=== PATIENT | female | born 2005 | race African-American/Black ===

== ENCOUNTER 2025-01-15 17:12 | Emergency (ER) | payer OTHER ==
[~2025-01-15] VITALS: Ht 170.2 cm; Wt 63.5 kg
--- NOTE | 2025-01-15 17:39 | ERN ---
General Chief Complaint: Eye Problems Stated Complaint: LT EYE PROBLEM Time Seen by MD: 17:14 Time Seen by Midlevel: 17:14 Source: patient History of Present Illness Initial Comments Patient is a 19-year-old female with no significant past medical history presenting to the emergency department for evaluation following left eye droopiness. The patient states she woke up this morning and noticed her left eyelid was droopy. She goes your symptoms reported to an ophthalmology clinic where she had her eyes dilated and was advised that this could potentially be neurological so they advised to report to the ER for further evaluation. The patient denies any persistent headache, vision changes, focal weakness, nausea, vomiting, or any other symptoms at this time. Allergies: Coded Allergies: grass pollen (Unverified Allergy, Unknown, 01/15/25) Past Medical History Past Medical History: Asthma Past Surgical History: Tonsillectomy Female( History) LMP: Dec 30, 2024 ROS Dictation CONSTITUTIONAL: Negative except for HPI HEAD/FACE: Negative except for HPI EENT: Negative except for HPI RESPIRATORY: Negative except for HPI GASTROINTESTINAL/ABDOMINAL: Negative except for HPI GENITOURINARY: Negative except for HPI MUSCULOSKELETAL: Negative except for HPI INTEGUMENTARY: Negative except for HPI NEUROLOGICAL/PSYCH: Negative except for HPI HEMATOLOGIC/LYMPHATIC: Negative except for HPI All Systems Negative, Except as noted above. 13 point review of systems assessed and all negative except for above. Physical Exam Physical Exam Dictation Vital Signs reviewed General Appearance: Alert, oriented x 3, no acute distress, well developed, nourished. Head and Face: non-traumatic. Eyes: PERRL, pink conjunctivas, eyelid no trauma, anterior chamber with arcus senilis. Ears: Pinnas intact and no signs of trauma or erythema ear canals clear and no discharge TM no erythema Nose: No discharge, no bleeding. Oropharynx: Mouth normal, tongue pink, pharynx clear,no erythema, tonsils no exudates, no abscesses noted, mucous membrane moist Neck: Supple, non-tender, no thyromegaly, no masses, no JVD, no bruits Breast:Deferred Chest:No tenderness, no crepitus, no paradoxical movement, no retractions Lungs:Clear, well-ventilated, symmetric, no rales, no wheezing, no rhonchi, no stridor, good breath sounds bilaterally Heart: Regular rate, regular rhythm, no murmur, no gallops Vascular: no peripheral edema, Abdomen: Soft, positive bowel sounds, nondistended, no guarding, nontender, no rebound, no masses no hepatomegaly, no splenomegaly, no Hart's sign, no hernias. Rectal: Deferred Genital: Deferred Neurological: Normal speech, motor function intact, sensory function intact Musculoskeletal: Neck nontender, full range of motion, back nontender, full range of motion, Extremities: nontender, full range of motion Skin: Color pink, dry, no turgor, no rash, no lacerations, no abrasions, no contusions. Lymphatic: Deferred Results Laboratory and Microbiology Lab and Micro Result Laboratory Tests Test 01/15/25 18:02 White Blood Count 7.5 K/uL (4.8-10.8) Red Blood Count 4.75 MIL/uL (4.00-5.50) Hemoglobin 13.9 g/dL (12.0-16.0) Hematocrit 44.0 % (36-48) Mean Corpuscular Volume 92.6 fL (80-100) Mean Corpuscular Hemoglobin 29.3 pg (27.0-33.0) Mean Corpuscular Hemoglobin Concent 31.6 g/dL (32.0-36.0) L Red Cell Distribution Width 12.2 % (11.0-15.5) Platelet Count 409 K/uL (130-400) H Mean Platelet Volume 9.3 fL (7.5-10.5) Immature Granulocyte % (Auto) 0.3 % (0-1) Neutrophils (%) (Auto) 45.1 % (40.0-77.0) Lymphocytes (%) (Auto) 48.4 % (21.0-51.0) Monocytes (%) (Auto) 4.2 % (3.0-13.0) Eosinophils (%) (Auto) 1.5 % (0.0-8.0) Basophils (%) (Auto) 0.5 % (0.0-5.0) Neutrophils # (Auto) 3.4 K/uL (1.8-7.7) Lymphocytes # (Auto) 3.6 K/uL (1.0-4.8) Monocytes # (Auto) 0.3 K/uL (0.1-1.0) Eosinophils # (Auto) 0.11 K/uL (0.00-0.70) Basophils # (Auto) 0.04 K/uL (0.00-0.20) Absolute Immature Granulocyte (auto 0.02 K/uL (0-1) Nucleated Red Blood Cells 0.0 % (0.0-0.19) Sodium Level 138 mmol/L (136-145) Potassium Level 3.3 mmol/L (3.5-5.1) L Chloride Level 99 mmol/L (101-111) L Carbon Dioxide Level 32 mmol/L (21-32) Blood Urea Nitrogen 7 mg/dL (7-18) Creatinine 0.8 mg/dL (0.5-1.0) Glomerular Filtration Rate Calc 107 mL/min (>90) Random Glucose 149 mg/dL (70-105) H Total Calcium 9.1 mg/dL (8.5-10.1) Serum Test, Qualitative NEGATIVE (NEGATIVE) Labs Reviewed?: Yes MDM MDM: Patient is a 19-year-old female with no significant past medical history presenting to the emergency department for evaluation following left eye droopiness. The patient states she woke up this morning and noticed her left eyelid was droopy. She goes your symptoms reported to an ophthalmology clinic where she had her eyes dilated and was advised that this could potentially be neurological so they advised to report to the ER for further evaluation. The patient denies any persistent headache, vision changes, focal weakness, nausea, vomiting, or any other symptoms at this time. On physical examination the patient is in no acute distress. Initial vital signs are stable. Her neuro logical examination is unremarkable. There was no facial droop or eyelid droop noted. Cranial nerves are intact. She has a GCS of 15. We obtained basic labs and a CT scan of the head to rule out any acute intracranial process. CBC and chemistries are unremarkable. CT scan of the head does not show any acute intracranial abnormality. I advised patient to follow up with your primary care doctor for further evaluation and possibly an MRI for outpatient. Differential diagnosis: Intracranial bleed, intracranial mass, dehydration, electrolyte abnormality, Wallace's palsy There are no social concerns with this patient. Prescription drug management Prescriptions will include: None Medical management and examination interpretation discussions were had by me with other qualified healthcare professionals as indicated for the patient's care. ED Course Orders Procedure Category Date Status Time Cbc With Differential LAB 01/15/25 Complete 17:20 Basic Metabolic Panel LAB 01/15/25 Complete 17:20 Testing, LAB 01/15/25 Complete Serum Hcg 17:20 Ct Head/Brain W/O CT 01/15/25 Resulted Contrast 17:20 Vital Signs Date Time Temp Pulse Resp B/P (MAP) Pulse Ox O2 Delivery O2 Flow Rate FiO2 01/15/25 19:30 98.8 87 18 132/81 98 Room Air* 0 21 01/15/25 17:14 99.3 106 20 150/95 99 Room Air DX & DISP Disposition: Discharge Departure Impression: Primary Impression: Droopy eyelid Condition: Stable Additional Instructions: Your blood work today is unremarkable. Your CT scan of the head does not show any evidence of an intracranial mass or any other intracranial abnormality. Please follow up with your primary care doctor in 2-3 days for repeat evaluation. Return to the ER for any new or worsening symptoms Referrals: SELF,REFERRAL (PCP) Time of Disposition: 19:23 I have reviewed the case, and I agree with, Diagnosis and Plan I performed the substantive portion of the visit. I have reviewed and personally made and approve the management plan that is documented in the note by myself or the MERRY. I acknowledge for responsibility for the patient's management plan. CARLO KABA Jan 15, 2025 17:39
[2025-01-15 18:21] LABS: BASOPHILS # (AUTO) 0.04 K/uL (0.00-0.20); BASOPHILS % (AUTO) 0.5 % (0.0-5.0); EOSINOPHILS # (AUTO) 0.11 K/uL (0.00-0.70); EOSINOPHILS % (AUTO) 1.5 % (0.0-8.0); IMMATURE GRANULOCYTE ABSOLUTE 0.02 K/uL (0-1); LYMPHOCYTES # (AUTO) 3.6 K/uL (1.0-4.8); LYMPHOCYTES % (AUTO) 48.4 % (21.0-51.0); MEAN CORPUSCULAR HEMOGLOBIN 29.3 pg (27.0-33.0); MEAN CORPUSCULAR HGB CONC 31.6 g/dL (32.0-36.0); MEAN CORPUSCULAR VOLUME 92.6 fL (80-100); MONOCYTES # (AUTO) 0.3 K/uL (0.1-1.0); MONOCYTES % (AUTO) 4.2 % (3.0-13.0); NEUTROPHILS # (AUTO) 3.4 K/uL (1.8-7.7); NEUTROPHILS % (AUTO) 45.1 % (40.0-77.0); PLATELET COUNT (AUTO) 409 K/uL (130-400); RED BLOOD CELL COUNT(AUTO) 4.75 MIL/uL (4.00-5.50); RED CELL DISTRIBUTION WIDTH 12.2 % (11.0-15.5); WHITE BLOOD COUNT (AUTO) 7.5 K/uL (4.8-10.8)
[2025-01-15 18:35] LABS: CREATININE 0.8 mg/dL (0.5-1.0); POTASSIUM 3.3 mmol/L (3.5-5.1)
--- NOTE | 2025-01-15 19:20 | HMCIMG ---
CT HEAD WITHOUT CONTRAST INDICATION: Left eyelid drooping TECHNIQUE: Noncontrast axial helical CT images from the vertex through the skull base using 5 mm slice thickness without contrast material. CT was performed with one or more of the following dose reduction techniques: Automated exposure control, adjustment of the mA and/or kV according to patient size, or use of iterative reconstruction technique. COMPARISON: None FINDINGS: The cerebral and cerebellar hemispheres are age-appropriate in appearance. No evidence for abnormal extra-axial fluid collections or masses. The ventricles and sulci are normal in size and configuration. No evidence for intracranial parenchymal, epidural, or subdural hemorrhage, mass effect or midline shift. The haskins-white matter differentiation is well preserved. No secondary evidence to suggest acute ischemia. The brainstem and cerebellum appear normal. Orbits were not included on this study. The visible paranasal sinuses and mastoid air cells are clear. The calvarium appears normal. IMPRESSION: Orbits were not included on this study. No acute intracranial process identified.
[2025-01-15 19:30] VITALS: BP 132/81; PULSE 87; RESP 18; TEMP 98.7; O2SAT 98
== END 2025-01-15 19:36 | disposition home or self-care (01) ==
LOC: EDH 17:12
DX: H02.402 Unspecified ptosis of left eyelid (principal); J45.909 Unspecified asthma, uncomplicated; Z90.89 Acquired absence of other organs
CPT/HCPCS: 36415; 70450; 80048; 84703; 85025; 99284

== ENCOUNTER 2025-07-08 21:11 | Emergency (ER) | payer OTHER ==
[~2025-07-08] VITALS: Ht 170.2 cm; Wt 65.3 kg
[2025-07-08 21:41] LABS: IMMATURE GRANULOCYTE ABSOLUTE 0.02 K/uL (0-1); NUCLEATED RED BLOOD CELLS 0.0 % (0.0-0.19); PLATELET COUNT (AUTO) 316 K/uL (130-400); RED BLOOD CELL COUNT(AUTO) 4.26 MIL/uL (4.00-5.50); RED CELL DISTRIBUTION WIDTH 12.9 % (11.0-15.5); WHITE BLOOD COUNT (AUTO) 7.9 K/uL (4.8-10.8)
--- NOTE | 2025-07-08 22:02 | ERN ---
ED Note History of Present Illness Stated Complaint: C/O SI Chief Complaint: Suicidal Ideation Time Seen by MD: 21:14 Time Seen by Midlevel: 21:14 Dictation: The patient is a 20-year-old female with a history of tonsillectomy, scoliosis, asthma who presents to the emergency department with complaints of suicidal ideations onset Tuesday. patient reports that she has had suicidal ideations in the past but never has attempted suicide. Patient reports she has a plan to jump off a violeta or ran her car into a building. Denies any recent attempt. Denies any homicidal ideation denies any hallucinations. Allergies: Coded Allergies: No Known Allergies (Unverified Allergy, Unknown, 07/08/25) grass pollen (Unverified Allergy, Unknown, 01/15/25) Past Medical History Past Medical History: Asthma, Other Additional Past Medical Hx: HX OF SCOLIOSIS Surgical History: Tonsillectomy LMP: Jun 23, 2025 RN Note Reviewed/Agreed w/PFSH: Yes Review of System Dictation Constitutional: Negative for fever,chills, and weight loss Eyes: Negative for injury, pain,redness, and discharge ENT: Negative for injury,pain or swelling Cardiovascular: Negative for chest pain, palpitations, and edema Respiratory: Negative for shortness of breath, cough, and wheezing, Abdomen/GI: Negative for abdominal pain, nausea, vomiting, diarrhea, and constipation Back: Negative for injury and pain : Negative for injury, bleeding and discharge MS/Extremity: Negative for injury and deformity Skin: Negative for rash, and discoloration Neuro: Negative for headache, weakness, numbness, tingling, and seizure Psych: Negative for homicidal ideation, and hallucinations positive for suicidal ideation Initial Vital Sign VS Vital Signs Date Time Temp Pulse Resp B/P (MAP) Pulse Ox O2 Delivery O2 Flow Rate FiO2 07/08/25 21:12 99.9 94 20 136/86 99 Room Air 07/08/25 22:13 0 21 Physical Exam Dictation Vital Signs reviewed General Appearance: Alert, oriented x 3, no acute distress, well developed, nourished. Head and Face: non-traumatic. Eyes: PERRL, pink conjunctivas, eyelid no trauma, anterior chamber with arcus senilis. Ears: Pinnas intact and no signs of trauma or erythema ear canals clear and no discharge TM no erythema Nose: No discharge, no bleeding. Oropharynx: Mouth normal, tongue pink. pharynx clear,no erythema, tonsils no exudates, no abscesses noted, mucous membrane moist Neck: Supple, non-tender, no thyromegaly, no masses, no JVD, no bruits Breast:Deferred Chest:No tenderness, no crepitus, no paradoxical movement, no retractions Lungs:Clear, well-ventilated, symmetric, no rales, no wheezing, no rhonchi, no stridor, good breath sounds bilaterally Heart: Regular rate, regular rhythm, no murmur, no gallops Vascular: no peripheral edema, Abdomen: Soft, positive bowel sounds, nondistended, no guarding, nontender, no rebound, no masses no hepatomegaly, no splenomegaly, no Hart's sign, no hernias. Rectal: Deferred Genital: Deferred Neurological: Normal speech, motor function intact, sensory function intact Musculoskeletal: Neck nontender, full range of motion, back nontender, full range of motion, Extremities: nontender, full range of motion Skin: Color pink, dry, no turgor, no rash, no lacerations, no abrasions, no contusions. Lymphatic: Deferred Results (Laboratory/Radiology) Laboratory/Radiology Laboratory Tests Test 07/08/25 21:30 07/08/25 22:30 White Blood Count 7.9 K/uL (4.8-10.8) Red Blood Count 4.26 MIL/uL (4.00-5.50) Hemoglobin 13.0 g/dL (12.0-16.0) Hematocrit 39.1 % (36-48) Mean Corpuscular Volume 91.8 fL (79-99) Mean Corpuscular Hemoglobin 30.5 pg (27.0-33.0) Mean Corpuscular Hemoglobin Concent 33.2 g/dL (32.0-36.0) Red Cell Distribution Width 12.9 % (11.0-15.5) Platelet Count 316 K/uL (130-400) Mean Platelet Volume 9.1 fL (7.5-10.5) Immature Granulocyte % (Auto) 0.3 % (0-1) Neutrophils (%) (Auto) 68.9 % (40.0-77.0) Lymphocytes (%) (Auto) 25.7 % (21.0-51.0) Monocytes (%) (Auto) 4.6 % (3.0-13.0) Eosinophils (%) (Auto) 0.1 % (0.0-8.0) Basophils (%) (Auto) 0.4 % (0.0-5.0) Neutrophils # (Auto) 5.4 K/uL (1.8-7.7) Lymphocytes # (Auto) 2.0 K/uL (1.0-4.8) Monocytes # (Auto) 0.4 K/uL (0.1-1.0) Eosinophils # (Auto) 0.01 K/uL (0.00-0.70) Basophils # (Auto) 0.03 K/uL (0.00-0.20) Absolute Immature Granulocyte (auto 0.02 K/uL (0-1) Nucleated Red Blood Cells 0.0 % (0.0-0.19) Sodium Level 140 mmol/L (136-145) Potassium Level 3.7 mmol/L (3.5-5.1) Chloride Level 102 mmol/L (101-111) Carbon Dioxide Level 26 mmol/L (21-32) Blood Urea Nitrogen 5 mg/dL (7-18) L Creatinine 0.7 mg/dL (0.5-1.0) Glomerular Filtration Rate Calc 125 mL/min (>90) Random Glucose 95 mg/dL (70-105) Total Calcium 8.8 mg/dL (8.5-10.1) Salicylates Level < 2.8 mg/dL (2.8-20.0) L Acetaminophen Level < 1 mcg/mL (10-30) L Serum Alcohol < 3 mg/dL (0-10) Urine Color COLORLESS (YELLOW) Urine Appearance CLEAR (CLEAR) Urine pH 7.0 (5.0-8.0) Urine Specific [place] 1.002 (1.001-1.031) Urine Protein NEGATIVE mg/dL (NEGATIVE) Urine Glucose (UA) NEGATIVE mg/dL (NEGATIVE) Urine Ketones NEGATIVE mg/dL (NEGATIVE) Urine Occult Blood NEGATIVE (NEGATIVE) Urine Nitrate NEGATIVE (NEGATIVE) Urine Bilirubin NEGATIVE mg/dL (NEGATIVE) Urine Urobilinogen 0.2 mg/dL (0.2-1.0) Urine Leukocyte Esterase NEGATIVE [place]/uL Urine HCG, Qualitative NEGATIVE (NEGATIVE) Urine Opiates Screen NEGATIVE (NEGATIVE) Urine Barbiturates Screen NEGATIVE (NEGATIVE) Urine Phencyclidine Screen NEGATIVE (NEGATIVE) Urine Amphetamines Screen NEGATIVE (NEGATIVE) Urine Benzodiazepines Screen NEGATIVE (NEGATIVE) Urine Cocaine Screen NEGATIVE (NEGATIVE) Urine Marijuana (THC) Screen NEGATIVE (NEGATIVE) Labs Reviewed?: Yes ED Course ED Course Orders Procedure Category Date Status Time Cbc With Differential LAB 07/08/25 Complete 21: Alcohol, Blood LAB 07/08/25 Complete 21:23 Salicylate LAB 07/08/25 Complete 21:23 Acetaminophen LAB 07/08/25 Complete 21:23 Urinalysis Profile LAB 07/08/25 Complete 21:23 Basic Metabolic Panel LAB 07/08/25 Complete 21:23 ,Urine Test LAB 07/08/25 Complete 21:23 Drug Screen Urine LAB 07/08/25 Complete 21:54 Vital Signs Date Time Temp Pulse Resp B/P (MAP) Pulse Ox O2 Delivery O2 Flow Rate FiO2 07/08/25 22:13 98.2 82 18 120/74 98 Room Air* 0 21 07/08/25 21:12 99.9 94 20 136/86 99 Room Air Medical Decision Making MDM The patient is a 20-year-old female with a history of tonsillectomy, scoliosis, asthma who presents to the emergency department with complaints of suicidal ideations onset Tuesday. patient reports that she has had suicidal ideations in the past but never has attempted suicide. Patient reports she has a plan to jump off a violeta or ran her car into a building. Denies any recent attempt. Denies any homicidal ideation denies any hallucinations. CBC showed no leukocytosis, no anemia, chemistry showed no electrolyte imbalance, normal renal function. Urinalysis unremarkable. Patient was evalua roya by yanira and does not meet criteria for admission. Yanira will follow up with patient tomorrow morning. Differential diagnosis: Suicidal ideation, psychosis, depression Need for hospitalization: Patient does not meet criteria for hospitalization. There are no social concerns with this patient. DX & DISP Disposition: Discharge Departure Impression: Primary Impression: Psychiatric illness Condition: Stable Additional Instructions: Your labs were unremarkable. Please follow up with behavioral specialists tomorrow. If anything changes or worsens please return to ER. FOLLOW-UP WITH PRIMARY CARE PROVIDER IN 1 TO 2 DAYS. TAKE MEDICATIONS DIRECTED HERE IN THE EMERGENCY ROOM. OKAY TO CONTINUE HOME MEDICATIONS UNLESS OTHERWISE DISCUSSED DURING YOUR VISIT IN THE EMERGENCY ROOM TODAY. RETURN TO YOUR NEAREST EMERGENCY ROOM IF SYMPTOMS WORSEN OR IF THERE IS NO IMPROVEMENT. CALL 911 IF YOU NEED IMMEDIATE ASSISTANCE. TAKE TYLENOL [id number] N EEDED AND IF NO CONTRAINDICATIONS ARE PRESENT. INCREASE ORAL HYDRATION. A WOUND CULTURE OR URINE CULTURE WAS ORDERED HERE IN THE EMERGENCY ROOM DEPARTMENT PLEASE FOLLOW-UP WITH PRIMARY CARE PROVIDER AND ADVISE THEM TO GET REPEAT PORTS FROM OUR FACILITY. IF YOU HAD ANY JOSE MIGUEL WRAP/SPLINTS THAT WERE APPLIED HERE, PLEASE DO NOT REMOVE THEM UNTIL YOU SEE YOUR PRIMARY CARE OR SPECIALTY. Referrals: ANASTACIO LEE MD (PCP) Time of Disposition: 02:30 I have reviewed the case, and I agree with, Diagnosis and Plan SUPRIYA [employer] Jul 08, 2025 22:02
[2025-07-08 22:06] LABS: ALCOHOL, BLOOD < 3 mg/dL (0-10); CREATININE 0.7 mg/dL (0.5-1.0); GLOMERULAR FILTR. RATE CALC 125 mL/min (>90); GLUCOSE,RANDOM 95 mg/dL (70-105); SODIUM SERUM 140 mmol/L (136-145); UREA NITROGEN, BLOOD 5 mg/dL (7-18)
[2025-07-08 22:43] LABS: HCG,QUALITATIVE URINE NEGATIVE (NEGATIVE)
[2025-07-08 22:44] LABS: APPEARANCE,URINE CLEAR (CLEAR); GLUCOSE, URINE (UA) NEGATIVE (NEGATIVE); LEUKOCYTE ESTERASE ,URINE NEGATIVE Leu/uL (NEGATIVE); NITRATE,URINE NEGATIVE (NEGATIVE); OCCULT BLOOD,URINE NEGATIVE (NEGATIVE)
[2025-07-08 22:50] LABS: ADD UA MICROSCOPIC NO
[2025-07-08 22:51] LABS: AMPHET/METH SCREEN,URINE NEGATIVE (NEGATIVE); BARBITURATE SCREEN, URINE NEGATIVE (NEGATIVE); CANNABINOID SCREEN,URINE NEGATIVE (NEGATIVE); COCAINE SCREEN,URINE NEGATIVE (NEGATIVE)
--- NOTE | 2025-07-08 23:01 | NUR ---
[facility] NOTIFIED OF PATIENT PRESENTATION
--- NOTE | 2025-07-09 00:14 | NUR ---
BO GIL AT BEDSIDE TO EVALUATE PATIENT
--- NOTE | 2025-07-09 02:35 | NUR ---
PER [facility] JOHN CORADO; OKAY TO D/C PATIENT WITH SAFETY PLAN; ED MD AND MIDLEVEL MADE AWARE
[2025-07-09 02:40] VITALS: BP 122/68; PULSE 86; RESP 20; TEMP 98.5; O2SAT 98
== END 2025-07-09 02:42 | disposition home or self-care (01) ==
LOC: EDH 21:11
DX: F99 Mental disorder, not otherwise specified (principal); J45.909 Unspecified asthma, uncomplicated; Z90.89 Acquired absence of other organs
CPT/HCPCS: 99284; 80048; 80305; 85025; 81025; 36415; 81003; G0481